=== PATIENT | male | born 1955 | race Caucasian/White ===

== ENCOUNTER 2018-10-31 07:08 | Day surgery (SDC) | payer MEDICARE ==
[~2018-10-31] VITALS: Ht 165.1 cm; Wt 70.3 kg
[2018-10-31 08:54] LABS: ANION GAP 14.6 mmol/L (8-16); CALCIUM 9.1 mg/dL (8.5-10.1); CARBON DIOXIDE 28.8 mmol/L (21.0-32.0); CREATININE - SERUM 4.8 mg/dL (0.6-1.3); POTASSIUM - SERUM 4.4 mmol/L (3.5-5.1)
[2018-10-31 08:57] LABS: INR 0.95 (0.85-1.17); PROTIME 12.2 SECONDS (11.6-15.0)
[2018-10-31 08:59] LABS: BASOPHILS 0.3 % (0-2); EOSINOPHILS 3.6 % (0-7); HEMATOCRIT 32.7 % (42.0-54.0); HEMOGLOBIN 10.5 g/dL (13.5-17.5); IMMATURE GRANULOCYTES 0.7 % (0-5); MCH 28.6 pg (26.0-34.0); MCHC 32.1 g/dL (31.0-37.0); MCV 89.1 fL (80.0-100.0); MEAN PLATELET VOLUME 9.9 fL (7.4-10.4); MONOCYTES 7.6 % (2-11); NEUTROPHILS 66.8 % (40-80); PLATELET COUNT 214 10x3/uL (130-400); RBC 3.67 10x6/uL (4.20-6.10); RDW 14.4 % (11.5-14.5); WBC 8.9 10x3/uL (4.8-10.8)
[2018-10-31] MEDS ORDERED: METOPROLOL TART25 MG PO (10:29)
[2018-10-31] MEDS ORDERED: LINZESS145 MCG PO (10:30)
[2018-10-31] MEDS ORDERED: RENVELA800 MG PO (10:30)
[2018-10-31] MEDS ORDERED: K-DUR20 MEQ PO (10:31)
[2018-10-31] MEDS ORDERED: JANUVIA25 MG PO (10:31)
[2018-10-31] MEDS ORDERED: LISINOPRIL10 MG PO (10:31)
[2018-10-31] MEDS ORDERED: ROCALTROL0.25 MCG PO (10:32)
[2018-10-31] MEDS ORDERED: FUROSEMIDE20 MG PO (10:32)
[2018-10-31] MEDS ORDERED: LIPITOR20 MG PO (10:32)
[2018-10-31] MEDS ORDERED: FLOMAX0.4 MG PO (10:32)
[2018-10-31] MEDS ORDERED: NOVOLOG100 UNIT/1 SC (10:33)
[2018-10-31] MEDS ORDERED: ZOLOFT25 MG PO (10:33)
[2018-10-31] MEDS ORDERED: LANTUS SOL100 UNIT/1 (10:33)
[2018-10-31 10:50] VITALS: Ht 165.1 cm; Wt 70.3 kg
[2018-10-31] MEDS ORDERED: ULTRAM50 MG PO (14:28)
--- NOTE | 2018-10-31 15:45 | NUR ---
LEFT ARM ELEVATED ON PILLOW
--- NOTE | 2018-10-31 19:01 | NUR ---
1625 IV REMOVED AND PRESSURE HELD. DRESSING APPLIED. MAXIMUM ASSISTANCE TO W/C
--- NOTE | 2018-11-01 16:38 | OP ---
PATIENT NAME: HARVINDER LEVINE MEDICAL RECORD: [id number] :54 LOCATION:D[facility] ADMISSION DATE: SURGEON: ELIN GARVIN MD DATE OF OPERATION: 10/31/2018 REFERRING PHYSICIAN: Isidro Abdul MD PREOPERATIVE DIAGNOSIS: End-stage renal disease, dependence on hemodialysis. POSTOPERATIVE DIAGNOSIS: End-stage renal disease, dependence on hemodialysis. OPERATION PERFORMED: Implantation of left forearm 6-mm diameter standard wall Propaten heparin-bonded PTFE graft between the brachial artery and the basilic vein. This is a "pinky push configuration." SURGEON: Elin Garvin MD ANESTHESIA: General per AUDIO TECHNICIAN with LMA. PREOPERATIVE NOTE: Mr. Levine is a 63-year-old white male, snf patient due to catastrophic CVA or traumatic brain injury. He is now on dialysis with a tunneled dialysis catheter placed in mid September and needs a long-term access. He has small spindly arms with small veins. Vein mapping indicated likely success with a bfckgxvl-pb-pulrduj vein AV fistula or possibly a forearm loop AV graft to the basilic vein above the level of the antecubital space. The patient has a habit of keeping his elbows flexed from something associated with his brain injury, and although he is not contracted, I would be concerned for putting a PTFE graft across that elbow joint. He is right handed. We plan to put it on the left side. DESCRIPTION OF PROCEDURE: Under general anesthesia, the patient was prepped and draped in sterile manner; and under anesthesia, I was able to easily straighten his arm, straighten his elbow, and abduct his arm. I examined him with ultrasound after first applying nitroglycerin paste while using a De Witt drain as a proximal venous tourniquet. I thought that the basilic vein in the forearm just below and at the level of the antecubital space was marginal. The brachial artery seemed to be acceptable and I decided to go ahead and try a forearm loop. A transverse incision was made in the brachial artery, exposed, and controlled with Silastic loops. The basilic vein was carefully exposed, treated with topical papaverine, hydrostatically distended, and encircled with Silastic loops. I chose a 6-mm Propaten graft and bevelled one end. I occluded the vein with atraumatic clamps and the venotomy was made with #11 blade scalpel and vascular scissors. The vein was flushed then proximally with heparinized saline and the PTFE graft was then anastomosed to the side of the vein with running 6-0 Prolene. When that suture line was completed, Evicel sealant was applied and the suture line was subsequently found to be hemostatic. A longitudinal counterincision was made just proximal to the wrist and the graft was placed in a tunnel, which circled back to the antecubital space to the brachial artery. The graft was shortened, bevelled, and flushed with heparinized saline. The artery was occluded with the loops. The artery was opened and flushed proximally and distally with heparinized saline. The graft was bevelled and anastomosed to end of graft to side of artery with continuous running 6-0 Prolene, and when complete, that suture line also was treated with Evicel. After a period of curing, the clamps and loops were released. Excellent flow OPERATIVE REPORT [id number] HARVINDER LEVINE R developed immediately within the fistula and continued to improve steadily during the closure. There was good pulsatile continuous Doppler flow within the recipient basilic vein and in the AV graft. The wounds were infiltrated with 0.25% Marcaine without epinephrine and closed with interrupted inverted 3-0 Vicryl with running intracuticular 4-0 Stratafix. The incisions were sealed with glue and the surrounding skin was treated with Cavilon skin prep. The incision was further dressed with Maxorb Ag and Tegaderm. The patient was then awakened, and in stable condition, taken to the recovery room. Blood loss was insignificant, about 1 cc or none, during the operation. No drain was used. No surgical specimen was submitted for histopathology. Sponges, instruments, and needles were accounted for. PLAN: The patient will go back to snf today and will follow up with me in my office next week. The original operative dressing can be left intact until he sees me in the office. If this graft remains patent, hopefully the arm will not become too swollen and we can start accessing and dialyzing the patient with the new access in 10 days to 2 weeks. He is, I think, at considerable risk for developing venous anastomotic stenosis and venous stricture, so he might benefit from an early scheduled fistulogram done with the capability of Lutonix balloon dilation and/or placement of a Viabahn stent in the venous anastomosis. TRANSINT:[id number] Voice Confirmation ID: [id number] DOCUMENT ID: [id number] ELIN GARVIN MD at 1638 CC: [id number] DICTATION DATE: 10/31/18 145 PROPELLANT ASSEMBLER: 10/31/18 1823 [facility] 10/31/18 [place] [id number] [place] [id number]
== END 2018-10-31 16:30 | disposition home or self-care (01) ==
LOC: D.OPS 07:08
PROVIDERS: Surgery; ATTEND Internal Medicine Nephrology
DX: N18.6 End stage renal disease (principal); Z99.2 Dependence on renal dialysis; Z01.812 Encounter for preprocedural laboratory examination

== ENCOUNTER 2019-04-17 08:34 | Day surgery (SDC) | payer MEDICARE ==
[~2019-04-17] VITALS: Ht 167.6 cm; Wt 73.3 kg
[~2019-04-17 08:34] MED LIST: FLOMAX0.4 MG PO; FUROSEMIDE20 MG PO; JANUVIA25 MG PO; K-DUR20 MEQ PO; LANTUS SOL100 UNIT/1; LINZESS145 MCG PO; LIPITOR20 MG PO; LISINOPRIL10 MG PO; METOPROLOL TART25 MG PO; NOVOLOG100 UNIT/1 SC; RENVELA800 MG PO; ROCALTROL0.25 MCG PO; ULTRAM50 MG PO; ZOLOFT25 MG PO
[2019-04-17 09:05] LABS: BASOPHILS 0.5 % (0-2); EOSINOPHILS 3.6 % (0-7); HEMOGLOBIN 12.3 g/dL (13.5-17.5); IMMATURE GRANULOCYTES 0.5 % (0-5); LYMPHOCYTES 25.3 % (15-50); MCH 30.7 pg (26.0-34.0); MCHC 31.5 g/dL (31.0-37.0); MCV 97.3 fL (80.0-100.0); MEAN PLATELET VOLUME 9.3 fL (7.4-10.4); MONOCYTES 7.2 % (2-11); NEUTROPHILS 62.9 % (40-80); PLATELET COUNT 242 10x3/uL (130-400); RBC 4.01 10x6/uL (4.20-6.10); RDW 15.6 % (11.5-14.5); WBC 8.6 10x3/uL (4.8-10.8)
[2019-04-17 09:16] LABS: INR 0.93 (0.85-1.17); PROTIME 12.4 SECONDS (11.6-15.0)
[2019-04-17 09:28] LABS: ANION GAP 14.9 mmol/L (8-16); CALCIUM 8.6 mg/dL (8.5-10.1); CARBON DIOXIDE 29.3 mmol/L (21.0-32.0); CREATININE - SERUM 5.3 mg/dL (0.6-1.3); POTASSIUM - SERUM 4.2 mmol/L (3.5-5.1)
[2019-04-17 09:38] VITALS: Ht 167.6 cm; Wt 73.3 kg
[2019-04-17] MEDS ORDERED: LIPITOR40 MG PO (09:39)
[2019-04-17] MEDS ORDERED: VITAMIN B-12500 MCG PO (09:45)
[2019-04-17] MEDS ORDERED: COLACE100 MG PO (09:45)
[2019-04-17] MEDS ORDERED: FISH OIL 1,0001 CA1 PO (09:46)
[2019-04-17] MEDS ORDERED: PLAVIX75 MG PO (09:46)
[2019-04-17] MEDS ORDERED: SENNA LAXATIVE8.6 MG PO (09:47)
[2019-04-17] MEDS ORDERED: KENALOG 0.1 % O15 GM TOPICAL (09:48)
[2019-04-17] MEDS ORDERED: ACETAMINOPHEN325 MG PO (09:48)
--- NOTE | 2019-04-17 12:46 | NUR ---
EVICEL 2ML LOT [id number] EXP 10/2020 S/N [id number] [facility] [id number]
[2019-04-17] MEDS ORDERED: ULTRAM50 MG PO (13:09)
--- NOTE | 2019-04-17 13:34 | NUR ---
1330 PATIENT'S PUPILS UN EQUAL WITH OS LARGER THAN OD. PATIENT PAST CVA WITH RESIDUAL LEFT FACIAL DROOPING PREOP. DR. JACOBO NOTITIFIED AND SAYS "IT'S OK"
--- NOTE | 2019-04-17 14:38 | NUR ---
3921 PT'S SISTER HAS RETURNED TO HIS ROOM.
--- NOTE | 2019-04-19 17:55 | OP ---
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 Implantation of a left upper arm proximal brachial artery to proximal basilic vein. 2. Artegraft loop prosthetic AV graft. SURGEON: Elin Garvin MD ANESTHESIA: General with LMA per FLOOR POLISHER. PREOPERATIVE NOTE: Ms. Levine is a 64-year-old white male who has sustained a catastrophic stroke and is now on hemodialysis and has fortunately a dialysis catheter. I implanted a forearm loop AV graft on the left side last fall and it has failed repeatedly, and despite a venous outflow stent, the basilic vein has consistently been shutting down just above the upper end of the graft or the stent and now that graft has been abandoned. He is brought back to the OR at this time with plans to place a new graft in the left upper arm in the proximal portion. Under general anesthesia, the patient was placed in supine position, prepped and draped in the usual manner. I examined him with Duplex ultrasound and noted that the proximal brachial and axillary arteries were of good size and suitable for origin of an AV graft and the proximal basilic vein was near normal caliber and I thought we could go ahead as planned. I made a longitudinal incision and exposed and controlled both the brachial artery and basilic vein with Silastic loops. I chose an Artegraft prosthetic and placed it in a subcutaneous tunnel, very superficially in a circular pattern back to the upper arm incision with a single counter incision on the anterior arm just above the antecubital space. The vein was occluded and flushed proximally and distally with heparinized saline and the venous anastomosis performed then with running 6-0 Prolene. The anastomosis was sealed with Evicel. The graft was flushed with heparinized saline, then shortened and beveled and anastomosed end-to-side to the artery after opening the artery and flushing it with heparinized saline. The last anastomosis also was done with running 6-0 Prolene, and upon completion and sealing with Evicel and then release of the occluding clamps and loops, excellent flow developed immediately in the new fistula and there was preservation of pulsatile flow in the brachial artery distal to the anastomosis. The wound was irrigated with Ancef and gentamicin solution. It was then closed with interrupted inverted 3-0 Vicryl and running intracuticular 4-0 Stratafix. The counter incision was closed in a simple inverted 3-0 Vicryl and Dermabond glue. The primary incision was sealed with glue and both incisions were dressed with Maxorb Ag, Tegaderm, and Cavilon skin prep. He was awakened and taken to OPERATIVE REPORT [id number] HARVINDER LEVINE Jf the recovery room in stable condition with good pulsatile continuous flow in his new graft. He will go home today and continue his same medications and diet and dialysis schedule. He will return to see me in my office in 1-2 weeks. Plan to remove his dressing at that time, I hope and expect that will be able to start using the new graft in 10 days to 2 weeks from today. Blood loss during the operation was between 2 and 5 mL, was unreplaced. Sponges, instruments, and needles were accounted for. No drain was used and no surgical specimen was submitted for histopathology. TRANSINT:[id number] Voice Confirmation ID: [id number] DOCUMENT ID: [id number] cc: [facility] [phone] ELIN GARVIN MD at 1754 CC: ISIDRO SANFORD and GONZALEZ JANSEN [id number] DICTATION DATE: 04/17/19 1329 HAND BRUSH FILLER: 04/17/19 181 [facility] 04/17/[address] [facility] [address] [place] [address]
== END 2019-04-17 14:55 | disposition home or self-care (01) ==
LOC: D.OPS 08:34
PROVIDERS: ATTEND Internal Medicine Nephrology
DX: N18.6 End stage renal disease (principal); Z99.2 Dependence on renal dialysis; T82.868A Thrombosis due to vascular prosthetic devices, implants and grafts, initial encounter; E11.22 Type 2 diabetes mellitus with diabetic chronic kidney disease; Z79.84 Long term (current) use of oral hypoglycemic drugs